=== PATIENT | female | born 1965 | race Caucasian/White ===

== ENCOUNTER 2016-05-16 05:38 | Day surgery (SDC) | payer BC ==
[~2016-05-16] VITALS: Ht 160 cm; Wt 63.5 kg
[~2016-05-16 05:38] MED LIST: EXCEDRIN MIGRA1 EAC3 PO; MAXALT5 MG PO; TYLENOL EXTRA500 MG PO
[2016-05-16 06:08] VITALS: BP 123/83
[2016-05-16 09:35] VITALS: BP 126/74
[2016-05-16 10:40] VITALS: BP 111/75
== END 2016-05-16 10:55 | disposition home or self-care (01) ==
LOC: SDC 05:38
DX: R87.613 High grade squamous intraepithelial lesion on cytologic smear of cervix (HGSIL) (principal); N90.3 Dysplasia of vulva, unspecified; N72 Inflammatory disease of cervix uteri; F32.9 Major depressive disorder, single episode, unspecified
CPT/HCPCS: 88305; 88307; J0131; J1100; J1885; J2250; J2405; J2765; J3010